=== PATIENT | female | born 1995 | race Two or more races ===

== ENCOUNTER 2018-06-15 13:45 | Emergency (ER) | payer OTHER ==
[~2018-06-15] VITALS: Ht 162.6 cm; Wt 59.0 kg
[2018-06-15 14:41] LABS: BASOPHILS % (AUTO) 1 % (0-1); EOSINOPHILS # (AUTO) 0.21 x10^3/uL (0-0.4); EOSINOPHILS % (AUTO) 2 % (1-7); LYMPHOCYTES # (AUTO) 1.95 x10^3/uL (1-3.4); LYMPHOCYTES % (AUTO) 18 % (22-44); MD NO; MEAN CORPUSCULAR HEMOGLOBIN 30.9 pg (27.0-34.8); MEAN CORPUSCULAR HGB CONC 34.3 g/dL (32.4-35.8); MEAN PLATELET VOLUME 7.7 fL (7.4-10.4); MONOCYTES # (AUTO) 0.53 x10^3/uL (0.2-0.8); MONOCYTES % (AUTO) 5 % (2-9); NEUTROPHILS # (AUTO) 8.21 x10^3/uL (1.8-6.8); NEUTROPHILS % (AUTO) 75 % (42-75); PLATELET COUNT 324 x10^3/uL (130-400); RED BLOOD COUNT 4.65 x10^6/uL (3.82-5.3); RED CELL DISTRIBUTION WIDTH 13.1 % (9.6-15.2)
[2018-06-15 14:49] LABS: ALANINE AMINOTRANSFERASE 20 U/L (12-78); ALBUMIN 3.8 g/dL (3.4-5.0); ANION GAP 10 mmol/L (5-15); CALCIUM 9.1 mg/dL (8.5-10.1); CHLORIDE 106 mmol/L (98-107)
[2018-06-15 15:06] LABS: ALKALINE PHOSPHATASE 50 U/L (45-117); BILIRUBIN,TOTAL 0.3 mg/dL (0.2-1.0); TOTAL PROTEIN 7.6 g/dL (6.4-8.2)
[2018-06-15 16:44] LABS: MICROSCOPIC AUTO
[2018-06-15 17:08] LABS: CULTURE INDICATED? NO
[2018-06-15 17:15] VITALS: BP 112/68
== END 2018-06-15 17:39 | disposition home or self-care (01) ==
LOC: ED 14:50
DX: O20.0 Threatened abortion (principal); Z3A.01 Less than 8 weeks gestation of pregnancy
CPT/HCPCS: 36415; 76801; 80053; 81001; 84702; 85025; 86901; 99285

== ENCOUNTER 2019-02-03 04:31 | Inpatient (IN) | payer MEDICAID ==
[~2019-02-03] VITALS: Ht 162.6 cm; Wt 74.0 kg
[2019-02-03] MEDS ORDERED: OXYTOCIN 30U/ 0.9% NaCL 500ML 500 ML IV ONE (06:33)
[2019-02-03] MEDS ORDERED: FENTANYL PF 100 MCG/2ML IVPush PRN (07:00)
[2019-02-03] MEDS ORDERED: TERBUTALINE 1 MG/ML, 1ML IVPush PRN ×2 (07:00)
[2019-02-03] MEDS ORDERED: ONDANSETRON 2MG/ML, 2ML IVPush PRN (07:00)
[2019-02-03] MEDS ORDERED: FENTANYL PF 100 MCG/2ML IV PRN (07:00)
[2019-02-03] MEDS: LACTATED RINGERS 1,000 ML IV SCH ×3 (07:06→15:49)
[2019-02-03 07:16] VITALS: BP 107/74
[2019-02-03] MEDS ORDERED: OXYTOCIN 30U/ 0.9% NaCL 500ML 500 ML ONE ×2 (07:17→22:32)
[2019-02-03] MEDS ORDERED: NEWBORN KIT ONE (07:17)
[2019-02-03] MEDS ORDERED: LIDOCAINE 1%, 20ML ONE (07:17)
[2019-02-03] MEDS ORDERED: MISOPROSTOL 200 MCG TABLET ONE (07:17)
[2019-02-03 07:24] LABS: BASOPHILS # (AUTO) 0.03 x10^3/uL (0-0.1); BASOPHILS % (AUTO) 0 % (0-1); EOSINOPHILS # (AUTO) 0.24 x10^3/uL (0-0.4); EOSINOPHILS % (AUTO) 3 % (1-7); LYMPHOCYTES # (AUTO) 1.65 x10^3/uL (1-3.4); LYMPHOCYTES % (AUTO) 18 % (22-44); MD NO; MEAN CORPUSCULAR HEMOGLOBIN 30.1 pg (27.0-34.8); MEAN CORPUSCULAR HGB CONC 32.6 g/dL (32.4-35.8); MEAN CORPUSCULAR VOLUME 92.1 fL (80-100); MEAN PLATELET VOLUME 7.8 fL (7.4-10.4); MONOCYTES # (AUTO) 0.55 x10^3/uL (0.2-0.8); MONOCYTES % (AUTO) 6 % (2-9); NEUTROPHILS # (AUTO) 6.83 x10^3/uL (1.8-6.8); NEUTROPHILS % (AUTO) 74 % (42-75); PLATELET COUNT 257 x10^3/uL (130-400); RED CELL DISTRIBUTION WIDTH 16.2 % (9.6-15.2)
[2019-02-03] MEDS ORDERED: PREN1TAB60 PO (07:55)
[2019-02-03] MEDS ORDERED: OXYTOCIN 30U/ 0.9% NaCL 500ML 500 ML IV PRN (08:57)
[2019-02-03] MEDS ORDERED: FENTANYL/BUPIV./NS/PF 250 ML EPIDCONT SCH ×2 (10:40→10:53)
[2019-02-03] MEDS ORDERED: EPHEDRINE 50 MG/ML, 1ML IVPush PRN (11:00)
[2019-02-03] MEDS ORDERED: LACTATED RINGERS 1,000 ML IVBOLUS PRN (11:00)
[2019-02-03] MEDS ORDERED: NALOXONE 0.4 MG/ML, 1ML IVPush PRN (11:00)
[2019-02-03] MEDS ORDERED: FENTANYL PF 500 MCG, BUPIVACAINE/PF 0.5%, 30ML 62.5 ML in SODIUM CHLORIDE 0.9% 177.5 ML EPIDCONT SCH (11:00)
[2019-02-03] MEDS ORDERED: BUPIVACAINE 0.25% ONE (11:34)
[2019-02-03] MEDS ORDERED: ONDANSETRON 2MG/ML, 2ML ONE (15:20)
[2019-02-03] MEDS ORDERED: LACTATED RINGERS 1,000 ML INTUTE SCH (16:00)
[2019-02-03] MEDS ORDERED: LACTATED RINGERS 1,000 ML INTUTE PRN (16:00)
[2019-02-03] MEDS ORDERED: ONDANSETRON 2MG/ML, 2ML IV PRN ×2 (22:00)
[2019-02-03] MEDS ORDERED: IBUPROFEN 800 MG TABLET PO PRN ×2 (22:00)
[2019-02-03] MEDS ORDERED: ACETAMINOPHEN 325 MG TABLET PO PRN ×2 (22:00)
[2019-02-03] MEDS ORDERED: RHOGAM FROM BLOOD BANK 1 NOTE EA IM/IV ONE ×2 (22:00)
[2019-02-03] MEDS ORDERED: DOCUSATE 100 MG CAPSULE PO PRN ×2 (22:00)
[2019-02-03] MEDS ORDERED: BISACODYL 10 MG SUPP PR PRN ×2 (22:00)
[2019-02-03] MEDS ORDERED: HYDROcodone/APAP 5/325 TABLET PO PRN ×2 (22:00)
[2019-02-03] MEDS ORDERED: MISOPROSTOL 200 MCG TABLET PR PRN ×2 (22:00)
[2019-02-03] MEDS ORDERED: OXYcodone/APAP 5/325MG TABLET PO PRN ×2 (22:00)
[2019-02-03] MEDS: D5%-LACTATED RINGERS 1,000 ML IV SCH (22:33)
[2019-02-03] MEDS: OXYTOCIN 30U/ 0.9% NaCL 500ML 500 ML IV SCH (22:35)
[2019-02-03] MEDS ORDERED: IBUPROFEN 600 MG TABLET ONE (22:39)
[2019-02-03] MEDS: IBUPROFEN 600 MG TABLET PO PRN (22:49)
[2019-02-04] VITALS: BP 116/84
[2019-02-04] MEDS: D5%-LACTATED RINGERS 1,000 ML IV SCH ×3 (01:51→04:48)
[2019-02-04] MEDS: OXYTOCIN 30U/ 0.9% NaCL 500ML 500 ML IV SCH ×4 (04:47→17:47)
[2019-02-04] MEDS: LACTATED RINGERS 1,000 ML IV SCH ×4 (04:47→04:48)
[2019-02-04 05:35] VITALS: BP 108/66
[2019-02-04 06:14] LABS: BASOPHILS # (AUTO) 0.01 x10^3/uL (0-0.1); BASOPHILS % (AUTO) 0 % (0-1); EOSINOPHILS # (AUTO) 0.08 x10^3/uL (0-0.4); EOSINOPHILS % (AUTO) 1 % (1-7); LYMPHOCYTES # (AUTO) 1.21 x10^3/uL (1-3.4); LYMPHOCYTES % (AUTO) 8 % (22-44); MD NO; MEAN CORPUSCULAR HEMOGLOBIN 31.4 pg (27.0-34.8); MEAN CORPUSCULAR HGB CONC 33.7 g/dL (32.4-35.8); MEAN CORPUSCULAR VOLUME 93.3 fL (80-100); MEAN PLATELET VOLUME 7.9 fL (7.4-10.4); MONOCYTES # (AUTO) 0.94 x10^3/uL (0.2-0.8); MONOCYTES % (AUTO) 7 % (2-9); NEUTROPHILS # (AUTO) 12.15 x10^3/uL (1.8-6.8); NEUTROPHILS % (AUTO) 84 % (42-75); PLATELET COUNT 224 x10^3/uL (130-400); RED BLOOD COUNT 3.64 x10^6/uL (3.82-5.3); RED CELL DISTRIBUTION WIDTH 16.2 % (9.6-15.2)
[2019-02-04 07:25] VITALS: BP 100/65
[2019-02-04] MEDS ORDERED: PRENATAL VIT/IRON/FA 1 EACH TABLET PO SCH ×2 (09:00)
[2019-02-04] MEDS: IBUPROFEN 600 MG TABLET PO PRN ×2 (09:58→17:32)
[2019-02-04 12:45] VITALS: BP 100/63
[2019-02-04 16:25] VITALS: BP 100/63
== END 2019-02-04 20:19 | disposition home or self-care (01) | DRG 805 ==
LOC: LDOP 04:31 → LDIP 06:36 → 2NW 23:50
PROVIDERS: ADMIT Obstetrics & Gynecology Maternal & Fetal Medicine; ATTEND Obstetrics & Gynecology Maternal & Fetal Medicine
PROC: 10907ZC Drainage of Amniotic Fluid, Therapeutic from Products of Conception, Via Natural or Artificial Opening (ICD-10-PCS; principal; 2019-02-03)
PROC: 10E0XZZ Delivery of Products of Conception, External Approach (ICD-10-PCS; 2019-02-03)
PROC: 0HQ9XZZ Repair Perineum Skin, External Approach (ICD-10-PCS; 2019-02-03)
PROC: 3E0R3BZ Introduction of Anesthetic Agent into Spinal Canal, Percutaneous Approach (ICD-10-PCS; 2019-02-03)
PROC: 00HU33Z Insertion of Infusion Device into Spinal Canal, Percutaneous Approach (ICD-10-PCS; 2019-02-03)
DX: O32.6XX0 Maternal care for compound presentation, not applicable or unspecified (principal); O99.42 Diseases of the circulatory system complicating childbirth; Z37.0 Single live birth; O99.354 Diseases of the nervous system complicating childbirth; G43.809 Other migraine, not intractable, without status migrainosus; O36.8130 Decreased fetal movements, third trimester, not applicable or unspecified; O70.0 First degree perineal laceration during delivery; Z3A.40 40 weeks gestation of pregnancy; Z82.3 Family history of stroke
CPT/HCPCS: 36415; J7121; S0020; 85025; 86850; 86900; G0378; J2405; J3010; J3490; J2590; J7050; J7120

== ENCOUNTER 2020-11-29 15:38 | Outpatient (CLI) | payer OTHER, MEDICAID ==
[~2020-11-29] VITALS: Ht 160 cm; Wt 79.0 kg
[~2020-11-29 15:38] MED LIST: PREN1TAB60 PO
== END 2020-11-29 18:05 | disposition home or self-care (01) ==
LOC: LDOP 15:38
PROVIDERS: ATTEND Obstetrics & Gynecology Maternal & Fetal Medicine
DX: O46.93 Antepartum hemorrhage, unspecified, third trimester (principal); Z3A.35 35 weeks gestation of pregnancy
CPT/HCPCS: 59025; 76815

== ENCOUNTER → 2020-12-20 | Outpatient (CLI) | payer OTHER, MEDICAID | END | disposition home or self-care (01) | LOC: STAR 15:28 | PROVIDERS: ATTEND Obstetrics & Gynecology Maternal & Fetal Medicine | DX: Z20.822 Contact with and (suspected) exposure to COVID-19 (principal) | CPT/HCPCS: U0003 ==

== ENCOUNTER 2020-12-24 16:38 | Inpatient (IN) | payer OTHER, MEDICAID ==
[~2020-12-24] VITALS: Ht 160 cm; Wt 82.3 kg
[2020-12-24 16:56] VITALS: BP 122/86
[2020-12-24] MEDS ORDERED: LIDOCAINE 1%, 20ML ONE (16:59)
[2020-12-24] MEDS ORDERED: TERBUTALINE 1 MG/ML, 1ML SQ PRN (17:00)
[2020-12-24] MEDS ORDERED: PENICILLIN GK 5,000,000 UNITS in DEXTROSE 5% 100 ML IVPB ONE (17:00)
[2020-12-24] MEDS ORDERED: LACTATED RINGERS 1,000 ML IV SCH (17:00)
[2020-12-24] MEDS ORDERED: TERBUTALINE 1 MG/ML, 1ML IVPush PRN (17:00)
[2020-12-24] MEDS ORDERED: D5%-LACTATED RINGERS 1,000 ML IV SCH (17:00)
[2020-12-24] MEDS ORDERED: FENTANYL PF 100 MCG/2ML IVPush PRN (17:00)
[2020-12-24] MEDS ORDERED: NEWBORN KIT ONE (17:00)
[2020-12-24] MEDS ORDERED: ONDANSETRON 2MG/ML, 2ML IVPush PRN ×2 (17:00→18:00)
[2020-12-24] MEDS ORDERED: OXYTOCIN 30U/ 0.9% NaCL 500ML 500 ML ONE (17:00)
[2020-12-24] MEDS ORDERED: OXYTOCIN 30U/ 0.9% NaCL 500ML 500 ML IV ONE (17:00)
[2020-12-24] MEDS ORDERED: MISOPROSTOL 200 MCG TABLET ONE (17:00)
[2020-12-24 17:18] LABS: BASOPHILS % (AUTO) 0 % (0-1); EOSINOPHILS % (AUTO) 2 % (1-7); LYMPHOCYTES % (AUTO) 12 % (22-44); MEAN CORPUSCULAR HEMOGLOBIN 30.7 pg (27.0-34.8); MEAN CORPUSCULAR HGB CONC 34.3 g/dL (32.4-35.8); MEAN PLATELET VOLUME 7.9 fL (7.4-10.4); MONOCYTES % (AUTO) 7 % (2-9); NEUTROPHILS % (AUTO) 79 % (42-75); PLATELET COUNT 248 x10^3/uL (130-400); RED BLOOD COUNT 4.44 x10^6/uL (3.82-5.3); RED CELL DISTRIBUTION WIDTH 17.3 % (9.6-15.2)
[2020-12-24] MEDS ORDERED: BUPIVACAINE 0.25% ONE (17:18)
[2020-12-24] MEDS ORDERED: FENTANYL/BUPIV./NS/PF 250 ML EPIDCONT ONE (17:19)
[2020-12-24 17:24] LABS: MD NO
[2020-12-24] MEDS ORDERED: FENTANYL PF 100 MCG/2ML IV PRN ×2 (17:30→18:30)
[2020-12-24] MEDS ORDERED: EPHEDRINE 50 MG/ML, 1ML IVPush PRN (18:00)
[2020-12-24] MEDS ORDERED: NALOXONE 0.4 MG/ML, 1ML IVPush PRN (18:00)
[2020-12-24] MEDS: LACTATED RINGERS 1,000 ML IV SCH (18:00)
[2020-12-24] MEDS ORDERED: FENTANYL/BUPIV./NS/PF 250 ML EPIDCONT SCH (18:00)
[2020-12-24] MEDS ORDERED: DIPHENHYDRAMINE 50 MG/ML, 1ML IVPush PRN (18:00)
[2020-12-24] MEDS ORDERED: LACTATED RINGERS 1,000 ML IVBOLUS PRN (18:00)
[2020-12-24] MEDS ORDERED: OXYcodone/APAP 5/325MG TABLET PO PRN ×2 (19:30)
[2020-12-24] MEDS ORDERED: ONDANSETRON 2MG/ML, 2ML IV PRN (19:30)
[2020-12-24] MEDS ORDERED: BISACODYL 10 MG SUPP PR PRN (19:30)
[2020-12-24] MEDS ORDERED: MISOPROSTOL 200 MCG TABLET PR PRN (19:30)
[2020-12-24] MEDS ORDERED: CARBOPROST TROMETHAMINE 250 MCG/ML, 1ML IM PRN (19:30)
[2020-12-24] MEDS ORDERED: SIMETHICONE 80 MG CHEW TAB PO PRN (19:30)
[2020-12-24] MEDS ORDERED: CALCIUM CARBONATE 500 MG TAB.CHEW PO PRN (19:30)
[2020-12-24] MEDS: OXYTOCIN 30U/ 0.9% NaCL 500ML 500 ML IV SCH (19:30)
[2020-12-24] MEDS ORDERED: METHYLERGONOVINE 0.2 MG/ML IM PRN (19:30)
[2020-12-24] MEDS ORDERED: ACETAMINOPHEN 325 MG TABLET PO PRN ×2 (19:30)
[2020-12-24] MEDS ORDERED: GLYCERIN ADULT SUPP PR PRN (19:30)
[2020-12-24] MEDS ORDERED: MAGNESIUM HYDROXIDE 8%, 30ML UDC PO PRN (19:30)
[2020-12-24] MEDS ORDERED: METOCLOPRAMIDE 5 MG/ML, 2ML IV PRN (19:30)
[2020-12-24] MEDS ORDERED: DOCUSATE 100 MG CAPSULE PO PRN (19:30)
[2020-12-24] MEDS ORDERED: PENICILLIN GK 2,500,000 UNITS in DEXTROSE 5% 100 ML IVPB SCH (21:00)
[2020-12-24 22:10] VITALS: BP 106/69
[2020-12-25] MEDS: LACTATED RINGERS 1,000 ML IV SCH (02:00)
[2020-12-25 02:30] VITALS: BP 112/77
[2020-12-25] MEDS: OXYTOCIN 30U/ 0.9% NaCL 500ML 500 ML IV SCH (05:30)
[2020-12-25] MEDS: IBUPROFEN 600 MG TABLET PO PRN ×3 (05:37→19:29)
[2020-12-25 06:00] VITALS: BP 105/72
[2020-12-25 06:20] LABS: BASOPHILS % (AUTO) 0 % (0-1); EOSINOPHILS % (AUTO) 2 % (1-7); LYMPHOCYTES % (AUTO) 15 % (22-44); MEAN CORPUSCULAR HEMOGLOBIN 30.4 pg (27.0-34.8); MEAN CORPUSCULAR HGB CONC 33.7 g/dL (32.4-35.8); MEAN PLATELET VOLUME 7.9 fL (7.4-10.4); MONOCYTES % (AUTO) 7 % (2-9); NEUTROPHILS % (AUTO) 76 % (42-75); PLATELET COUNT 224 x10^3/uL (130-400); RED CELL DISTRIBUTION WIDTH 17.1 % (9.6-15.2)
[2020-12-25 06:21] LABS: MD NO
[2020-12-25 09:00] VITALS: BP 109/76
[2020-12-25] MEDS: PRENATAL VIT/IRON/FA 1 EACH TABLET PO SCH (09:00)
[2020-12-25 12:10] VITALS: BP 120/75
[2020-12-25 16:35] VITALS: BP 124/82
[2020-12-25 19:59] VITALS: BP 126/85
[2020-12-26] MEDS: IBUPROFEN 600 MG TABLET PO PRN ×2 (06:19→12:29)
[2020-12-26 08:00] VITALS: BP 117/77
[2020-12-26] MEDS: PRENATAL VIT/IRON/FA 1 EACH TABLET PO SCH (09:00)
[2020-12-26] MEDS ORDERED: IBUP-1222 PO (11:42)
[2020-12-26] MEDS ORDERED: DOCU-131 PO (11:43)
== END 2020-12-26 17:30 | disposition home or self-care (01) | DRG 807 ==
LOC: LDOP 16:38 → LDIP 16:53 → 2NW 21:55
PROVIDERS: ADMIT Obstetrics & Gynecology Maternal & Fetal Medicine; ATTEND Obstetrics & Gynecology Maternal & Fetal Medicine
PROC: 10E0XZZ Delivery of Products of Conception, External Approach (ICD-10-PCS; principal; 2020-12-24)
PROC: 0UQMXZZ Repair Vulva, External Approach (ICD-10-PCS; 2020-12-24)
PROC: 3E0R3BZ Introduction of Anesthetic Agent into Spinal Canal, Percutaneous Approach (ICD-10-PCS; 2020-12-24)
PROC: 00HU33Z Insertion of Infusion Device into Spinal Canal, Percutaneous Approach (ICD-10-PCS; 2020-12-24)
DX: O99.824 Streptococcus B carrier state complicating childbirth (principal); Z37.0 Single live birth; Z20.822 Contact with and (suspected) exposure to COVID-19; Z3A.39 39 weeks gestation of pregnancy; O70.0 First degree perineal laceration during delivery; I73.00 Raynaud's syndrome without gangrene; O99.42 Diseases of the circulatory system complicating childbirth
CPT/HCPCS: 36415; 85025; 86592; 86850; 86900; G0378; J2540; J3010; J7120

== ENCOUNTER 2021-04-29 17:40 | Emergency (ER) | payer MEDICAID, OTHER ==
[~2021-04-29] VITALS: Ht 161.3 cm; Wt 73.1 kg
[~2021-04-29 17:40] MED LIST changes: +DOCU-131 PO; +IBUP-1222 PO
[2021-04-29 18:52] LABS: BASOPHILS % (AUTO) 1 % (0-1); EOSINOPHILS % (AUTO) 4 % (1-7); LYMPHOCYTES % (AUTO) 31 % (22-44); MEAN CORPUSCULAR HEMOGLOBIN 30.6 pg (27.0-34.8); MEAN CORPUSCULAR HGB CONC 34.5 g/dL (32.4-35.8); MEAN PLATELET VOLUME 7.8 fL (7.4-10.4); MONOCYTES % (AUTO) 5 % (2-9); NEUTROPHILS % (AUTO) 59 % (42-75); PLATELET COUNT 248 x10^3/uL (130-400); RED BLOOD COUNT 4.82 x10^6/uL (3.82-5.3); RED CELL DISTRIBUTION WIDTH 13.7 % (9.6-15.2)
[2021-04-29 19:02] LABS: ALANINE AMINOTRANSFERASE 215 U/L (12-78); ANION GAP 4 mmol/L (5-15); CALCIUM 9.3 mg/dL (8.5-10.1); CHLORIDE 105 mmol/L (98-107); CREATININE 0.58 mg/dL (0.55-1.02)
[2021-04-29 19:06] LABS: ALKALINE PHOSPHATASE 85 U/L (45-117); BILIRUBIN,TOTAL 0.3 mg/dL (0.2-1.0); TOTAL PROTEIN 8.3 g/dL (6.4-8.2)
--- NOTE | 2021-04-29 20:02 | NUR ---
NIL X 1
--- NOTE | 2021-04-29 20:28 | NUR ---
2017 LYINHR, 126/92, 96% DENIES DIZZINESS 2019 SITTINHR, 129/77, 99% DENIES DIZZINESS 2021 STANDINHR, 128/87, 98% +DIZZINESS WITH STANDING
[2021-04-29 21:30] VITALS: BP 112/79
[2021-04-29] MEDS ORDERED: ONDANSETRON ODT 4 MG ONE (21:44)
[2021-04-29] MEDS ORDERED: ONDANSETRON ODT 4 MG PO ONE (22:00)
[2021-04-29 22:04] LABS: MICROSCOPIC INDICATED
--- NOTE | 2021-04-29 23:52 | NUR ---
Patient given discharge instructions and they have confirmed that they understand the instructions. Patient ambulatory with steady gait. NAD, all questions answered appropriately, denies additional needs at this time. No personal belongings left in room after discharge.
== END 2021-04-29 23:53 | disposition home or self-care (01) ==
LOC: ED 21:11
DX: J15.9 Unspecified bacterial pneumonia (principal); R10.11 Right upper quadrant pain; R11.2 Nausea with vomiting, unspecified
CPT/HCPCS: 36415; 71045; 76700; 80053; 81001; 84703; 85025; 87086; 93005; 99285; Q0162

== ENCOUNTER → 2021-05-07 | Outpatient (CLI) | payer MEDICAID ==
[~2021-05-07] MED LIST changes: +OMNIPAQUE 350 MG/ML, 100ML BOTTLE ONE
== END | disposition home or self-care (01) ==
LOC: CFH 13:57
PROVIDERS: ATTEND Nurse Practitioner Family
DX: R42 Dizziness and giddiness (principal); R10.11 Right upper quadrant pain
CPT/HCPCS: 74177; Q9967